=== PATIENT | male | born 1940 | race Hispanic/Latino ===

== ENCOUNTER 2024-04-09 11:58 | Inpatient (IN) | payer MEDICARE ==
[2024-04-09] MEDS ORDERED: Sacubitril 24MG/Valsartan 26 MG TAB PO SCH (21:00)
[2024-04-10] MEDS ORDERED: Spironolactone 25 MG TAB PO SCH (09:00)
[2024-04-10] MEDS ORDERED: Non-Formulary Item 1 EACH (Amiodarone Hcl [Amiodarone Hcl] 100 MG Tablet) PO SCH (09:00)
[2024-04-10] MEDS: Sacubitril 24MG/Valsartan 26 MG TAB PO SCH (22:39)
[2024-04-10] MEDS: Atorvastatin Calcium 40 MG TAB PO SCH (22:45)
[2024-04-10] MEDS: Apixaban 2.5 MG TAB PO SCH (22:45)
[2024-04-10] MEDS: Famotidine 20 MG TAB PO SCH (22:45)
[2024-04-11] MEDS: Levothyroxine Sodium 75 MCG TAB PO SCH (05:22)
[2024-04-11 06:02] LABS: #Eosinophils 0.2 thou/uL (0.0-0.7); #Lymphocytes 1.4 thou/uL (1.20-3.40); #Monocytes 0.4 thou/uL (0.11-0.59); #Neutrophils 2.7 thou/uL (1.40-6.50); %Eosinophils 3.4 % (0.0-10.0); %Lymphocytes 29.3 % (21.0-51.0); %Monocytes 7.7 % (0.0-10.0); %Neutrophils 58.5 % (42.0-75.0); ALT (SGPT) 18 U/L (8-55); AST (SGOT) 18 U/L (5-34); Albumin 3.8 g/dL (3.4-4.8); Alkaline Phosphatase 60 U/L (40-110); Anion Gap 12 mmol/L (10-20); BUN (Urea Nitrogen) 19 mg/dL (8.4-25.7); Calc. Creatinine Clearance 50 mL/min (70-130); Calcium 8.6 mg/dL (7.8-10.44); Carbon Dioxide 20 mmol/L (23-31); Chloride 111 mmol/L (98-107); Estimated GFR 70; Globulin 2.7 g/dL (2.4-3.5); Glucose 73 mg/dL (83-110); Hematocrit 28.6 % (42.0-52.0); Hemoglobin 9.1 g/dL (14.0-18.0); Magnesium 2.2 mg/dL (1.6-2.6); Mean Corpuscular HGB CONC 31.9 g/dL (32.0-36.0); Mean Corpuscular Hemoglobin 28.2 pg (27.0-31.0); Mean Corpuscular Volume 88.2 fl (78.0-98.0); Mean Platelet Volume 9.3 fL (7.4-10.4); Platelet Count 146 10x3/uL (130-400); Potassium 4.2 mmol/L (3.5-5.1); Protein, Total 6.5 g/dL (5.8-8.1); RBC Distribution Width 14.5 % (11.5-14.5); Red Blood Cell (RBC) Count 3.24 mill/uL (4.70-6.10); Sodium 139 mmol/L (136-145); White Blood Cell (WBC) Count 4.6 10x3/uL (4.8-10.8)
[2024-04-11] MEDS: Aspirin Chewable 81 MG TAB PO SCH (08:52)
[2024-04-11] MEDS: Empagliflozin 10 MG TAB PO SCH (08:53)
[2024-04-11] MEDS: Famotidine 20 MG TAB PO SCH (08:53)
[2024-04-11] MEDS: Apixaban 2.5 MG TAB PO SCH (08:53)
[2024-04-11] MEDS: Spironolactone 25 MG TAB PO SCH (09:04)
[2024-04-11] MEDS: Amiodarone 200 MG TAB PO SCH (09:04)
[2024-04-11] MEDS: Sacubitril 24MG/Valsartan 26 MG TAB PO SCH (09:04)
[2024-04-11] MEDS: Atorvastatin Calcium 40 MG TAB PO SCH (20:23)
[2024-04-12] MEDS: Sacubitril 24MG/Valsartan 26 MG TAB PO SCH (20:24)
[2024-04-16] MEDS ORDERED: Polyethylene Glycol 3350 17 GM Packet PO PRN (08:19)
[2024-04-16] MEDS: Senokot S 8.6-50 MG TAB PO SCH (08:50)
[2024-04-16] MEDS: Acetaminophen 325 MG TAB PO PRN (15:56)
[2024-04-17 04:43] VITALS: BMI 23.5
[2024-04-17] MEDS: Amiodarone 200 MG TAB PO SCH (08:10)
[2024-04-17] MEDS: Polyethylene Glycol 3350 17 GM Packet PO SCH (08:10)
[2024-04-17] MEDS: Spironolactone 25 MG TAB PO SCH (08:10)
[2024-04-18 05:48] LABS: #Basophils 0.1 thou/uL (0.0-0.2); #Eosinophils 0.2 thou/uL (0.0-0.7); #Lymphocytes 1.4 thou/uL (1.20-3.40); #Monocytes 0.4 thou/uL (0.11-0.59); #Neutrophils 2.7 thou/uL (1.40-6.50); %Basophils 1.3 % (0.0-1.0); %Eosinophils 4.8 % (0.0-10.0); %Lymphocytes 28.9 % (21.0-51.0); %Monocytes 8.1 % (0.0-10.0); %Neutrophils 56.9 % (42.0-75.0); Hematocrit 28.4 % (42.0-52.0); Hemoglobin 8.8 g/dL (14.0-18.0); Mean Corpuscular HGB CONC 31.1 g/dL (32.0-36.0); Platelet Count 166 10x3/uL (130-400); RBC Distribution Width 14.7 % (11.5-14.5); Red Blood Cell (RBC) Count 3.27 mill/uL (4.70-6.10); White Blood Cell (WBC) Count 4.8 10x3/uL (4.8-10.8)
[2024-04-18 06:01] LABS: Anion Gap 13 mmol/L (10-20); BUN (Urea Nitrogen) 25 mg/dL (8.4-25.7); Calc. Creatinine Clearance 49 mL/min (70-130); Calcium 8.9 mg/dL (7.8-10.44); Carbon Dioxide 20 mmol/L (23-31); Chloride 110 mmol/L (98-107); Estimated GFR 68; Glucose 83 mg/dL (83-110); Magnesium 2.2 mg/dL (1.6-2.6); Potassium 4.4 mmol/L (3.5-5.1); Sodium 139 mmol/L (136-145)
[2024-04-22] MEDS: Senokot S 8.6-50 MG TAB PO SCH (09:27)
[2024-04-22 11:54] VITALS: BMI 23.8
[2024-04-24 05:29] LABS: #Basophils 0.1 thou/uL (0.0-0.2); #Eosinophils 0.2 thou/uL (0.0-0.7); #Lymphocytes 1.4 thou/uL (1.20-3.40); #Monocytes 0.4 thou/uL (0.11-0.59); #Neutrophils 2.7 thou/uL (1.40-6.50); %Basophils 1.1 % (0.0-1.0); %Eosinophils 3.4 % (0.0-10.0); %Lymphocytes 30.5 % (21.0-51.0); %Monocytes 8.2 % (0.0-10.0); %Neutrophils 56.9 % (42.0-75.0); Hemoglobin 9.1 g/dL (14.0-18.0); Mean Corpuscular HGB CONC 31.2 g/dL (32.0-36.0); Mean Corpuscular Hemoglobin 26.4 pg (27.0-31.0); Mean Corpuscular Volume 84.6 fl (78.0-98.0); Mean Platelet Volume 7.7 fL (7.4-10.4); Platelet Count 155 10x3/uL (130-400); RBC Distribution Width 14.2 % (11.5-14.5); Red Blood Cell (RBC) Count 3.43 mill/uL (4.70-6.10); White Blood Cell (WBC) Count 4.7 10x3/uL (4.8-10.8)
[2024-04-24 05:41] LABS: Anion Gap 13 mmol/L (10-20); BUN (Urea Nitrogen) 24 mg/dL (8.4-25.7); Calc. Creatinine Clearance 65 mL/min (70-130); Calcium 9.1 mg/dL (7.8-10.44); Carbon Dioxide 23 mmol/L (23-31); Chloride 108 mmol/L (98-107); Estimated GFR 60; Glucose 76 mg/dL (83-110); Potassium 4.7 mmol/L (3.5-5.1); Sodium 139 mmol/L (136-145)
[2024-04-25 07:27] VITALS: BP 136/68; TEMP 97.8
== END 2024-04-25 13:28 | disposition home or self-care (01) | DRG 945 ==
LOC: NAV ACUTE 04-10 21:38
PROVIDERS: ADMIT Student in an Organized Health Care Education/Training Program; ATTEND Student in an Organized Health Care Education/Training Program
PROC: F07Z9ZZ Gait Training/Functional Ambulation Treatment (ICD-10-PCS; principal; 2024-04-10)
DX: R53.81 Other malaise (principal); I50.23 Acute on chronic systolic (congestive) heart failure; R57.0 Cardiogenic shock; I13.0 Hypertensive heart and chronic kidney disease with heart failure and stage 1 through stage 4 chronic kidney disease, or unspecified chronic kidney disease; I24.0 Acute coronary thrombosis not resulting in myocardial infarction; I25.5 Ischemic cardiomyopathy; I48.0 Paroxysmal atrial fibrillation; E03.9 Hypothyroidism, unspecified; R26.81 Unsteadiness on feet; D63.1 Anemia in chronic kidney disease; K59.00 Constipation, unspecified; Z98.890 Other specified postprocedural states; Z79.890 Hormone replacement therapy; N18.31 Chronic kidney disease, stage 3a; Z79.82 Long term (current) use of aspirin
CPT/HCPCS: 36415; 80048; 80053; 83735; 85025